=== PATIENT | female | born 1985 | race Two or more races ===

== ENCOUNTER 2025-04-30 22:57 | Emergency (ER) | payer MEDICARE, MEDICAID, SELFPAY ==
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
[2025-04-30 23:05] VITALS: BP 158/110; BP 172/99; PULSE 109; PULSE 120; RESP 18; TEMP 36.9; O2SAT 100; BMI 24.6
[2025-04-30 23:11] VITALS: BP 172/99; PULSE 109; RESP 18; TEMP 36.9; O2SAT 100
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
[2025-04-30 23:16] LABS: MANUAL DIFF FLAG NO
[2025-04-30 23:17] LABS: Hematocrit 22.8 % (37.0-47.0); Hemoglobin 7.5 g/dl (12.0-16.0); Imm Gran Abs Auto 0.03 X10*3/uL (0.00-0.03); Imm Gran Pct Auto 0.4 % (0.0-0.4); Lymphocytes Absolute Auto 1.3 X10*3/uL (1.2-4.9); Mean Corpuscular HGB Conc 32.9 g/dl (31.0-35.0); Mean Corpuscular Hemoglobin 25.8 pg (27.0-33.0); Mean Corpuscular Volume 78.4 fL (80.0-98.0); NRBC Abs Auto 0.000 X10*3/uL (0.0-0.012); NRBC Pct Auto 0.0 /100WBC (0.0-0.2); Platelet Count 181 X10*3/uL (160-400); Red Blood Count 2.91 X10*6/uL (4.20-5.50); White Blood Count 6.9 X10*3/uL (4.8-10.8)
[2025-04-30 23:38] LABS: Alanine Aminotransferase 28 U/L (0-31); Albumin Level 3.6 g/dL (3.5-5.0); Alkaline Phosphatase 102 U/L (39-117); Anion Gap 15 (12-20); Aspartate Amino Transferase 37 U/L (5-31); Blood Urea Nitrogen 13 mg/dL (9-16); Calcium 8.4 mg/dL (8.4-10.2); Carbon Dioxide 21 mmol/L (22-29); Chloride 108 mmol/L (96-108); Creatinine Clr Calc Pharmacy 108.3; Estimated Glomerular Filt Rate > 60; Potassium 3.8 mmol/L (3.3-5.1); Sodium 140 mmol/L (135-145); Total Protein 7.0 g/dL (6.5-8.0)
--- OUTSIDE RECORDS SUMMARY | 2025-05-01 00:20 | XMS_ITS | Encounter Summary ---
Author Organization [facility] Address [address] [place] [id number] Care Team Providers Care Thermostat Repairer Name Role Phone Huey Machuca MD Primary Care Provider [phone] Apolinar Hood MD Unavailable [phone] Boni Rosenberg PA-C Unavailable [phone] Reason for Visit * Reason Onset Date Comments Medical Complaint 04/28/2025 Encounter Details Date Type Department Care Team (Late st Contact Info) Description 04/28/2025 Telephone [facility] Heart & Vascular [facility] [address] [place] [address] [phone] Apolinar Hood MD [address] [place] [phone] Medical Complaint Social History Tobacco Use Types Packs/Day Years Used Date Smoking Tobacco: Never Smokeless Tobacco: Never Alcohol Use Standard Drinks/Week Comments Not Currently 0 (1 standard drink = 0.6 oz pur e alcohol) [facility] Utilities Answer Date Recorded In the past 12 months has th e electric, gas, oil, or water company threatened to shut off services in your home? No 08/27/2024 AUDIT-C Answer Date Recorded Q1: How often do you have a drink containing alc ohol? Monthly or less 11/05/2024 Q2: How many drinks containi ng alcohol do you have on a typical day when you are drinking? 1 or 2 11/05/2024 Q3: How often do you have si x or more drinks on one occasion? Less than monthly 11/05/2024 Hunger Vital Sign Answer Date Recorded Within the past 12 months, y ou worried that your food would run out before you got the money to buy more. Never true 08/27/20 24 Within the past 12 months, t he food you bought just didn't last and you didn't have money to get more. Never true 08/27/2024 PRAPARE - Transportation Answer Date Re corded In the past 12 months, has l ack of transportation kept you from medical appointments or from getting medications? No 08/09 In the past 12 months, has l ack of transportation kept you from meetings, work, or from getting things needed for daily living? No 08/27/2024 Housing Stability Vital Sign Answer Solitario e Recorded In the last 12 months, was t here a time when you were not able to pay the mortgage or rent on time? Yes 08/27/2024 In the past 12 months, how m any times have you moved where you were living? 1 08/27/2024 At any time in the past [address] [facility], were you homeless or living in a jail (including now)? No 08/27/2024 Comments No Sex and Gender Information Value Date Recorded Sex Assigned at Female 01/04/2023 1:04 AM EDT Legal Sex Female 3:31 PM EDT Gender Identity Female 01/04/2023 1:04 AM EDT Sexual Orientation Heterosexual (straight) 01/04 1:04 AM EDT documented as of this encounter Miscellaneous Notes * Telephone Encounter - Tray Merino [place] - 04/28/2025 8:55 AM EDT Patient called stating that she went to her local hospital in [place] and that not much was done for her. She feels as though they have been beating around the velazco in regards to her care and not tryingto help her. She also doesn't think the Carvedilol 12.5 mg BID is working as her BP's are still high. Patient reports BP readings of high 150s systolic and low 90's diastolic. Patient is requesting advise from MD office. Informed patient that there isn't much that we can advise over phone and that she should be evaluated for her symptoms and high BP. MD is not available this week and patient had canceled follow up apt w/ MD for next Saturday (05/04). Strongly advised/encouraged patient to come to ED for evaluation. Patient states that she is unable to come to as I have to bring my son tohis dentist appointment and I have to work . At this time encouraged patient to continue following up w/ local ED. Reminded patient of appointments that have been set for 05/06. Reiterated the importance of her keeping and making appointments. Patient vocalized understanding. Patient support and education provided. Status and goals discussed. All questions were answered w/ confirmed understanding. Encouraged patient to have a low threshold to call w/ questions. Tray Merino MA documented in this encounter Plan of Treatment Upcoming Encounters Date Type Department Care Team (Late st Contact Info) Description 05/06/2025 11:00 AM EDT Appointment [facility] Heart [facility] [address] [place] [phone] Amalia Russo MD [address] [address] 05/06/2025 12:00 PM EDT Office Visit [facility] [address] [facility] [address] [place] [phone] Amalia Russo MD [address] [address] 05/06/2025 1:30 PM EDT Procedure visit [facility] [address] [place] [phone] 05/06/2025 2:20 PM EDT Consult [facility] [address] [place] [address] [phone] documented as of this encounter Visit Diagnoses Not on filedocumented in this encounter Care Teams Thermostat Repairer Relationship Specialty Start Date End Date Huey Machuca MD [address] [place] [phone] PCP - General Internal Medicine 06/30/24 Apolinar Hood MD [address] [place] [phone] Horse Riding Coach Or Instructor Cardiovascular Disease 06/30/22 Boni Rosenberg PA-C [address] [place] [phone] Physician Planning Official Cardiovascular Disease 06/30/24 documented as of this encounter
--- OUTSIDE RECORDS SUMMARY | 2025-05-01 00:20 | XMS_ITS ---
Author Name [facility] Organization Unknown Results Test Name/Text Value Interpretation Date Range Source Lipase SerPl-cCnc 36.0 U/L Normal 11/23/2024 13 - 60 H HCCT Creat SerPl-mCnc 0.6 mg/dL Normal 11/23/2024 0.4 - 1.1 HH CCT CO2 SerPl-sCnc 27.0 mmol/L Normal 11/23/2024 22 - 33 HH CCT Chloride SerPl-sCnc 96.0 mmol/L Below low normal 11/23/2024 98 - 107 HHCCT GFR/BSA.pred SerPlBld KZR-IMO-JuUQpb >90.0 Normal 11/23/2024 59 - HHCCT Bilirub SerPl-mCnc 0.5 mg/dL Normal 11/23/2024 0.2 - 1 HHCCT Glucose SerPl-mCnc 293.0 mg/dL Above high normal 11/23/2024 65 - 99 HHCCT Albumin SerPl-mCnc 4.2 g/dL Normal 11/23/2024 3.5 - 5 HHCCT Calcium SerPl-mCnc 9.4 mg/dL Normal 11/23/2024 8.7 - 10.5 HHCCT ALP SerPl-cCnc 129.0 U/L Above high normal 11/23/2024 32 - 1 22 HHCCT Globulin Ser Calc-mCnc 4.5 g/dL Above high normal 11/23/2024 1.5 - 3.9 HHCCT BUN SerPl-mCnc 11.0 mg/dL Normal 11/23/2024 8 - [address] ALT SerPl-cCnc 19.0 U/L Normal 11/23/2024 10 - 50 HHCC T AST SerPl-cCnc 27.0 U/L Normal 11/23/2024 10 - 50 HHCC T BUN/Creat SerPl 18.0 Ratio Normal 11/23/2024 10 - 25 HH CCT Anion Gap Bld-sCnc 13.0 Normal 11/23/2024 7 - 17 HHCCT Prot SerPl-mCnc 8.7 g/dL Above high normal 11/23/2024 6.3 - 8.3 HHCCT Sodium SerPl-sCnc 136.0 mmol/L Normal 11/23/2024 136 - 14 5 HHCCT Potassium SerPl-sCnc 3.5 mmol/L Normal 11/23/2024 3.4 - 5 .3 HHCCT Albumin/Glob SerPl 0.9 Ratio Below low normal 11/23/2024 1 - 3 HHCCT pro BNP, N-terminal 1298.0 pg/mL Above high normal 5 - 125 HHCCT Delta NO PREVIOUS RESULT Normal 11/23/2024 - 3 HHCCT Troponin T SerPl-mCnc <6.0 ng/L Normal 11/23/2024 - 15 HHCCT MCHC RBC Auto-mCnc 33.9 g/dL Normal 11/23/2024 30 - 36 HHCCT Hgb Bld-mCnc 13.7 g/dL Normal 11/23/2024 11.7 - 15.7 HHCC T Hct VFr Bld Auto 40.4 % Normal 11/23/2024 35 - 47 HH CCT Basophils num Bld Auto 0.02 Thou/uL Normal 11/23/2024 0 - 0.2 HHCCT Lymphocytes num Bld Auto 1.21 Thou/uL Below low normal 11/23/2024 1.5 - 4.5 HHCCT MCV RBC Auto 82.0 fL Normal 11/23/2024 80 - 100 HHCCT Monocytes/leuk NFr Bld Auto 5.3 % Normal 11/23/2024 HHCCT PMV Bld Auto 10.3 fL Normal 11/23/2024 7.5 - 12.5 HHCCT Lymphocytes/leuk NFr Bld Auto 12.3 % Normal 11/23/2024 HHCCT Basophils/leuk NFr Bld Auto 0.2 % Normal 11/23/2024 HHCCT Platelet num Bld Auto 253.0 Thou/uL Normal 11/23/2024 150 - 450 HHCCT MCH RBC Qn Auto 27.7 pg Normal 11/23/2024 26 - [address] Imm Granulocytes num Bld Auto 0.03 Thou/uL Normal 11/23/2024 0 - 0.1 HHCCT Eosinophil num Bld Auto 0.06 Thou/uL Normal 11/23/2024 0 - 0.7 HHCCT Neutrophils num Bld Auto 7.96 Thou/uL Above high normal 11/23/2024 2 - 7.5 HHCCT RDW RBC Auto-Rto 12.5 % Normal 11/23/2024 11.5 - 14.5 HHCCT Monocytes num Bld Auto 0.52 Thou/uL Normal 11/23/2024 0.2 - 1.5 HHCCT Eosinophil/leuk NFr Bld Auto 0.6 % Normal 11/23/2024 HHCCT WBC num Bld Auto 9.8 Thou/uL Normal 11/23/2024 4 - 11 HHCCT Imm Granulocytes/leuk NFr Bld Auto 0.3 % Normal 11/23/2024 HHCCT Neutrophils/leuk NFr Bld Auto 81.3 % Normal 11/23/2024 HHCCT RBC num Bld Auto 4.95 Mil/uL Normal 11/23/2024 4 - 5.4 HHCCT BNP SerPl-mCnc 22.0 pcg/mL Normal 11/11/2024 0 - 100 CT _[facility] Troponin I SerPl HS-mCnc 7.0 ng/L Normal 11/11/2024 0 - 14 [facility] Magnesium SerPl-mCnc 2.7 mg/dL Normal 11/11/2024 1.7 - 2. 8 [facility] AST SerPl-cCnc 40.0 unit/L Normal 11/11/2024 5 - 40 CT [facility] Albumin SerPl-mCnc 4.5 g/dL Normal 11/11/2024 3.5 - 5 [facility] Creat SerPl-mCnc 0.8 mg/dL Normal 11/11/2024 0.5 - 1 CT _[facility] Sodium SerPl-sCnc 129.0 mmol/L Below low normal 11/11/2024 1 35 - 145 [facility] ALP SerPl-cCnc 108.0 unit/L Above high normal 11/11/2024 34 - 104 [facility] ALT SerPl-cCnc 12.0 unit/L Normal 11/11/2024 7 - 52 CT [facility] Calcium SerPl-mCnc 10.1 mg/dL Normal 11/11/2024 8.4 - 10. 2 [facility] Bilirub SerPl-mCnc 0.5 mg/dL Normal 11/11/2024 0.3 - 1 [facility] Chloride SerPl-sCnc 87.0 mmol/L Below low normal 11/11/2024 98 - 107 [facility] BUN/Creat SerPl 28.8 Above high normal 11/11/2024 12 - 20 [facility] CO2 SerPl-sCnc 29.0 mmol/L Normal 11/11/2024 24 - 32 CT [facility] BUN SerPl-mCnc 23.0 mg/dL Above high normal 11/11/2024 7 - 1 7 [facility] Anion Gap SerPl-sCnc 13.0 Normal 11/11/2024 5 - 14 [facility] Glucose SerPl-mCnc 397.0 mg/dL Above high normal 11/11/2024 70 - 199 [facility] Potassium SerPl-sCnc 4.7 mmol/L Normal 11/11/2024 3.5 - 5 .1 [facility] eGFRcr SerPlBld CKD-EPI 2020 98.0 mL/min/1.73m2 Normal 11/11/2024 - [facility] Prot SerPl-mCnc 9.0 g/dL Above high normal 11/11/2024 6.4 - 8.5 [facility] Platelet # Bld Auto 309.0 K/mcL Normal 11/11/2024 150 - 4 50 [facility] Lymphocytes/leuk NFr Bld Auto 24.4 % Normal 11/11/2024 20 - 48 [facility] Monocytes # Bld Auto 0.9 K/mcL Above high normal 11/11/2024 0 - 0.8 [facility] Eosinophil # Bld Auto 0.1 K/mcL Normal 11/11/2024 0 - 0.5 [facility] Basophils # Bld Auto 0.1 K/mcL Normal 11/11/2024 0 - 0.2 [facility] RDW RBC Auto-Rto 12.6 % Normal 11/11/2024 12.1 - 16.2 [facility] Monocytes/leuk NFr Bld Auto 12.1 % Above high normal 11/11/2024 2 - 12 [facility] Hct VFr Bld Auto 41.8 % Normal 11/11/2024 37 - 47 CT _[facility] RBC # Bld Auto 5.01 M/mcL Normal 11/11/2024 4.2 - 5.4 CT_ [facility] PMV Bld Auto 8.6 FL Normal 11/11/2024 7.4 - 11.4 [facility] Hgb Bld-mCnc 14.3 g/dL Normal 11/11/2024 12.5 - 16 [facility] WBC # Bld Auto 7.2 K/mcL Normal 11/11/2024 4 - 10.5 CT_[facility] MCHC RBC Auto-mCnc 34.1 g/dL Normal 11/11/2024 32 - 36 [facility] Neutrophils/leuk NFr Bld Auto 61.2 % Normal 11/11/2024 44 - 74 [facility] Eosinophil/leuk NFr Bld Auto 1.6 % Normal 11/11/2024 0 - 6 [facility] Neutrophils # Bld Auto 4.4 K/mcL Normal 11/11/2024 1.8 - 7.8 [facility] Basophils/leuk NFr Bld Auto 0.7 % Normal 11/11/2024 0 - 2 [facility] MCV RBC Auto 83.4 FL Normal 11/11/2024 78 - 100 [facility] MCH RBC Qn Auto 28.5 pcg Normal 11/11/2024 25 - 33 CT_ [facility] Lymphocytes # Bld Auto 1.7 K/mcL Normal 11/11/2024 1 - 3.2 [facility] Lactate SerPl-sCnc 1.5 mmol/L Normal 11/06/2024 0.5 - 1.9 HHCCT Lactate SerPl-sCnc 2.2 mmol/L Above high normal 11/06/2024 0 .5 - 1.9 HHCCT Troponin T SerPl-mCnc 16.0 ng/L Above high normal 11/06/2024 - 15 HHCCT Delta 1.0 Normal 11/06/2024 - 3 HHCCT pro BNP, N-terminal 2350.0 pg/mL Above high normal 5 - 125 HHCCT Troponin T SerPl-mCnc 15.0 ng/L Above high normal 11/06/2024 - 15 HHCCT Delta NO PREVIOUS RESULT Normal 11/06/2024 - 3 HHCCT BUN/Creat SerPl 20.0 Ratio Normal 11/06/2024 10 - 25 HH CCT Albumin/Glob SerPl 1.0 Ratio Normal 11/06/2024 1 - 3 HHCCT Sodium SerPl-sCnc 137.0 mmol/L Normal 11/06/2024 136 - 14 5 HHCCT Globulin Ser Calc-mCnc 4.6 g/dL Above high normal 11/06/2024 1.5 - 3.9 HHCCT Glucose SerPl-mCnc 344.0 mg/dL Above high normal 11/06/2024 65 - 99 HHCCT Calcium SerPl-mCnc 10.0 mg/dL Normal 11/06/2024 8.7 - 10. 5 HHCCT Bilirub SerPl-mCnc 0.5 mg/dL Normal 11/06/2024 0.2 - 1 HHCCT CO2 SerPl-sCnc 28.0 mmol/L Normal 11/06/2024 22 - 33 HH CCT ALP SerPl-cCnc 150.0 U/L Above high normal 11/06/2024 32 - 1 22 HHCCT BUN SerPl-mCnc 14.0 mg/dL Normal 11/06/2024 8 - [address] Potassium SerPl-sCnc 3.2 mmol/L Below low normal 11/06/2024 3.4 - 5.3 HHCCT AST SerPl-cCnc 18.0 U/L Normal 11/06/2024 10 - 50 HHCC T ALT SerPl-cCnc 15.0 U/L Normal 11/06/2024 10 - 50 HHCC T Creat SerPl-mCnc 0.7 mg/dL Normal 11/06/2024 0.4 - 1.1 HH CCT GFR/BSA.pred SerPlBld OYL-DIX-KkMIqe >90.0 Normal 11/06/2024 59 - HHCCT Prot SerPl-mCnc 9.0 g/dL Above high normal 11/06/2024 6.3 - 8.3 HHCCT Chloride SerPl-sCnc 95.0 mmol/L Below low normal 11/06/2024 98 - 107 HHCCT Albumin SerPl-mCnc 4.4 g/dL Normal 11/06/2024 3.5 - 5 HHCCT Anion Gap Bld-sCnc 14.0 Normal 11/06/2024 7 - 17 HHCCT Magnesium SerPl-mCnc 2.2 mg/dL Normal 11/06/2024 1.6 - 2. 7 HHCCT Platelet num Bld Auto 300.0 Thou/uL Normal 11/06/2024 150 - 450 HHCCT Imm Granulocytes/leuk NFr Bld Auto 0.4 % Normal 11/06/2024 HHCCT PMV Bld Auto 10.2 fL Normal 11/06/2024 7.5 - 12.5 HHCCT Neutrophils num Bld Auto 7.2 Thou/uL Normal 11/06/2024 2 - 7.5 HHCCT Neutrophils/leuk NFr Bld Auto 75.4 % Normal 11/06/2024 HHCCT RDW RBC Auto-Rto 12.4 % Normal 11/06/2024 11.5 - 14.5 HHCCT Eosinophil num Bld Auto 0.04 Thou/uL Normal 11/06/2024 0 - 0.7 HHCCT RBC num Bld Auto 4.91 Mil/uL Normal 11/06/2024 4 - 5.4 HHCCT Basophils/leuk NFr Bld Auto 0.3 % Normal 11/06/2024 HHCCT Basophils num Bld Auto 0.03 Thou/uL Normal 11/06/2024 0 - 0.2 HHCCT Hgb Bld-mCnc 13.6 g/dL Normal 11/06/2024 11.7 - 15.7 HHCC T Lymphocytes/leuk NFr Bld Auto 14.5 % Normal 11/06/2024 HHCCT Lymphocytes num Bld Auto 1.39 Thou/uL Below low normal 11/06/2024 1.5 - 4.5 HHCCT MCV RBC Auto 81.0 fL Normal 11/06/2024 80 - 100 HHCCT Imm Granulocytes num Bld Auto 0.04 Thou/uL Normal 11/06/2024 0 - 0.1 HHCCT Eosinophil/leuk NFr Bld Auto 0.4 % Normal 11/06/2024 HHCCT Monocytes num Bld Auto 0.86 Thou/uL Normal 11/06/2024 0.2 - 1.5 HHCCT MCH RBC Qn Auto 27.7 pg Normal 11/06/2024 26 - [address] MCHC RBC Auto-mCnc 34.3 g/dL Normal 11/06/2024 30 - 36 HHCCT WBC num Bld Auto 9.6 Thou/uL Normal 11/06/2024 4 - 11 HHCCT Hct VFr Bld Auto 39.7 % Normal 11/06/2024 35 - 47 HH CCT Monocytes/leuk NFr Bld Auto 9.0 % Normal 11/06/2024 HHCCT POC Glucose 305.0 mg/dL Above high normal 11/05/2024 65 - 99 HHCCT Potassium SerPl-sCnc 4.2 mmol/L Normal 11/05/2024 3.4 - 5 .3 HHCCT Glucose SerPl-mCnc 270.0 mg/dL Above high normal 11/05/2024 65 - 99 HHCCT Sodium SerPl-sCnc 135.0 mmol/L Below low normal 11/05/2024 1 36 - 145 HHCCT Anion Gap Bld-sCnc 11.0 Normal 11/05/2024 7 - 17 HHCCT Creat SerPl-mCnc 0.5 mg/dL Normal 11/05/2024 0.4 - 1.1 HH CCT BUN/Creat SerPl 18.0 Ratio Normal 11/05/2024 10 - 25 HH CCT BUN SerPl-mCnc 9.0 mg/dL Normal 11/05/2024 8 - 21 HHCC T Chloride SerPl-sCnc 101.0 mmol/L Normal 11/05/2024 98 - 1 07 HHCCT Calcium SerPl-mCnc 8.5 mg/dL Below low normal 11/05/2024 8.7 - 10.5 HHCCT GFR/BSA.pred SerPlBld JEL-TPG-VrFRqz >90.0 Normal 11/05/2024 59 - HHCCT CO2 SerPl-sCnc 23.0 mmol/L Normal 11/05/2024 22 - 33 HH CCT Platelet num Bld Auto 236.0 Thou/uL Normal 11/05/2024 150 - 450 HHCCT RBC num Bld Auto 4.3 Mil/uL Normal 11/05/2024 4 - 5.4 H HCCT Hct VFr Bld Auto 36.0 % Normal 11/05/2024 35 - 47 HH CCT MCH RBC Qn Auto 28.4 pg Normal 11/05/2024 26 - [address] MCV RBC Auto 84.0 fL Normal 11/05/2024 80 - 100 HHCCT Hgb Bld-mCnc 12.2 g/dL Normal 11/05/2024 11.7 - 15.7 HHCC T PMV Bld Auto 9.7 fL Normal 11/05/2024 7.5 - 12.5 HHCCT MCHC RBC Auto-mCnc 33.9 g/dL Normal 11/05/2024 30 - 36 HHCCT RDW RBC Auto-Rto 12.6 % Normal 11/05/2024 11.5 - 14.5 HHCCT WBC num Bld Auto 6.7 Thou/uL Normal 11/05/2024 4 - 11 HHCCT POC Glucose 272.0 mg/dL Above high normal 11/05/2024 65 - 99 HHCCT Delta NO CHANGE Normal 08/29/2024 - CCT Troponin T SerPl-mCnc <6.0 ng/L Normal 08/29/2024 - CCT POC Glucose 201.0 mg/dL Above high normal 08/29/2024 65 - 99 HHCCT Delta NO PREVIOUS RESULT Normal 08/29/2024 - CCT Troponin T SerPl-mCnc <6.0 ng/L Normal 08/29/2024 - CCT POC Glucose 164.0 mg/dL Above high normal 08/29/2024 65 - 99 HHCCT Phosphate SerPl-mCnc 4.5 mg/dL Normal 08/29/2024 2.7 - 4. 5 HHCCT Glucose SerPl-mCnc 177.0 mg/dL Above high normal 08/29/2024 65 - 99 CCT Creat SerPl-mCnc 0.6 mg/dL Normal 08/29/2024 0.4 - 1.1 HH CCT Sodium SerPl-sCnc 135.0 mmol/L Below low normal 08/29/2024 1 36 - 145 HHCCT Potassium SerPl-sCnc 3.9 mmol/L Normal 08/29/2024 3.4 - 5 .3 HHCCT Anion Gap Bld-sCnc 9.0 Normal 08/29/2024 7 - 17 HHCCT GFR/BSA.pred SerPlBld VWN-QOP-HxBDpk >90.0 Normal 08/29/2024 59 - HHCCT Calcium SerPl-mCnc 8.7 mg/dL Normal 08/29/2024 8.7 - 10.5 HHCCT CO2 SerPl-sCnc 23.0 mmol/L Normal 08/29/2024 22 - 33 HH CCT Chloride SerPl-sCnc 103.0 mmol/L Normal 08/29/2024 98 - 1 07 HHCCT BUN SerPl-mCnc 16.0 mg/dL Normal 08/29/2024 8 - [address] BUN/Creat SerPl 27.0 Ratio Above high normal 08/29/2024 10 - 25 HHCCT Magnesium SerPl-mCnc 1.7 mg/dL Normal 08/29/2024 1.6 - 2. 7 HHCCT POC Glucose 230.0 mg/dL Above high normal 08/29/2024 65 - 99 HHCCT POC Glucose 235.0 mg/dL Above high normal 08/29/2024 65 - 99 HHCCT POC Glucose 405.0 mg/dL Above high normal 08/28/2024 65 - 99 HHCCT pro BNP, N-terminal 996.0 pg/mL Above high normal 08/28/2024 - 125 HHCCT D dimer FEU PPP-mCnc 217.0 ng/mL DDU Normal 08/28/2024 - 230 HHCCT POC Glucose 196.0 mg/dL Above high normal 08/28/2024 65 - 99 HHCCT POC Glucose 210.0 mg/dL Above high normal 08/28/2024 65 - 99 HHCCT POC Glucose 317.0 mg/dL Above high normal 08/28/2024 65 - 99 HHCCT Magnesium SerPl-mCnc 1.8 mg/dL Normal 08/28/2024 1.6 - 2. 7 HHCCT Phosphate SerPl-mCnc 3.5 mg/dL Normal 08/28/2024 2.7 - 4. 5 HHCCT Chloride SerPl-sCnc 103.0 mmol/L Normal 08/28/2024 98 - 1 07 HHCCT Potassium SerPl-sCnc 5.1 mmol/L Normal 08/28/2024 3.4 - 5 .3 HHCCT BUN SerPl-mCnc 13.0 mg/dL Normal 08/28/2024 8 - [address] Anion Gap Bld-sCnc 10.0 Normal 08/28/2024 7 - 17 HHCCT Calcium SerPl-mCnc 8.8 mg/dL Normal 08/28/2024 8.7 - 10.5 HHCCT Glucose SerPl-mCnc 295.0 mg/dL Above high normal 08/28/2024 65 - 99 HHCCT Creat SerPl-mCnc 0.4 mg/dL Normal 08/28/2024 0.4 - 1.1 HH CCT GFR/BSA.pred SerPlBld RYW-NDA-LjONwt >90.0 Normal 08/28/2024 59 - HHCCT BUN/Creat SerPl 33.0 Ratio Above high normal 08/28/2024 10 - 25 HHCCT Sodium SerPl-sCnc 135.0 mmol/L Below low normal 08/28/2024 1 36 - 145 HHCCT CO2 SerPl-sCnc 22.0 mmol/L Normal 08/28/2024 22 - 33 HH CCT RDW RBC Auto-Rto 15.4 % Above high normal 08/28/2024 11.5 - 14.5 HHCCT RBC num Bld Auto 4.06 Mil/uL Normal 08/28/2024 4 - 5.4 HHCCT MCV RBC Auto 84.0 fL Normal 08/28/2024 80 - 100 HHCCT PMV Bld Auto 9.7 fL Normal 08/28/2024 7.5 - 12.5 HHCCT Platelet num Bld Auto 173.0 Thou/uL Normal 08/28/2024 150 - 450 HHCCT MCH RBC Qn Auto 28.1 pg Normal 08/28/2024 26 - [address] WBC num Bld Auto 8.8 Thou/uL Normal 08/28/2024 4 - 11 HHCCT Hct VFr Bld Auto 34.0 % Below low normal 08/28/2024 35 - 47 HHCCT Hgb Bld-mCnc 11.4 g/dL Below low normal 08/28/2024 11.7 - 15 .7 HHCCT MCHC RBC Auto-mCnc 33.5 g/dL Normal 08/28/2024 30 - 36 HHCCT POC Glucose 337.0 mg/dL Above high normal 08/28/2024 65 - 99 HHCCT POC Glucose 284.0 mg/dL Above high normal 08/28/2024 65 - 99 HHCCT POC Glucose 159.0 mg/dL Above high normal 08/28/2024 65 - 99 HHCCT POC Glucose 201.0 mg/dL Above high normal 08/27/2024 65 - 99 HHCCT POC Glucose 254.0 mg/dL Above high normal 08/27/2024 65 - 99 HHCCT POC Glucose 213.0 mg/dL Above high normal 08/27/2024 65 - 99 HHCCT Magnesium SerPl-mCnc 1.6 mg/dL Normal 08/27/2024 1.6 - 2. 7 HHCCT Calcium SerPl-mCnc 8.9 mg/dL Normal 08/27/2024 8.7 - 10.5 HHCCT BUN SerPl-mCnc 14.0 mg/dL Normal 08/27/2024 8 - [address] Creat SerPl-mCnc 0.5 mg/dL Normal 08/27/2024 0.4 - 1.1 HH CCT Potassium SerPl-sCnc 3.4 mmol/L Normal 08/27/2024 3.4 - 5 .3 HHCCT GFR/BSA.pred SerPlBld MTP-YBQ-OcFAgi >90.0 Normal 08/27/2024 59 - HHCCT Anion Gap Bld-sCnc 12.0 Normal 08/27/2024 7 - 17 HHCCT Sodium SerPl-sCnc 137.0 mmol/L Normal 08/27/2024 136 - 14 5 HHCCT CO2 SerPl-sCnc 25.0 mmol/L Normal 08/27/2024 22 - 33 HH CCT Chloride SerPl-sCnc 100.0 mmol/L Normal 08/27/2024 98 - 1 07 HHCCT BUN/Creat SerPl 28.0 Ratio Above high normal 08/27/2024 10 - 25 HHCCT Glucose SerPl-mCnc 191.0 mg/dL Above high normal 08/27/2024 65 - 99 HHCCT RDW RBC Auto-Rto 15.7 % Above high normal 08/27/2024 11.5 - 14.5 HHCCT MCH RBC Qn Auto 27.3 pg Normal 08/27/2024 26 - [address] MCHC RBC Auto-mCnc 33.1 g/dL Normal 08/27/2024 30 - 36 HHCCT RBC num Bld Auto 3.85 Mil/uL Below low normal 08/27/2024 4 - 5.4 HHCCT PMV Bld Auto 10.4 fL Normal 08/27/2024 7.5 - 12.5 HHCCT MCV RBC Auto 82.0 fL Normal 08/27/2024 80 - 100 HHCCT Hgb Bld-mCnc 10.5 g/dL Below low normal 08/27/2024 11.7 - 15 .7 HHCCT Hct VFr Bld Auto 31.7 % Below low normal 08/27/2024 35 - 47 HHCCT Platelet num Bld Auto 185.0 Thou/uL Normal 08/27/2024 150 - 450 HHCCT WBC num Bld Auto 7.7 Thou/uL Normal 08/27/2024 4 - 11 HHCCT POC Glucose 242.0 mg/dL Above high normal 08/27/2024 65 - 99 HHCCT POC Glucose 376.0 mg/dL Above high normal 08/27/2024 65 - 99 HHCCT POC Glucose 354.0 mg/dL Above high normal 08/27/2024 65 - 99 HHCCT POC Glucose 364.0 mg/dL Above high normal 08/26/2024 65 - 99 HHCCT Glucose SerPl-mCnc 359.0 mg/dL Above high normal 08/26/2024 65 - 99 HHCCT POC Glucose 378.0 mg/dL Above high normal 08/26/2024 65 - 99 HHCCT POC Glucose 482.0 mg/dL Above high normal 08/26/2024 65 - 99 HHCCT Glucose SerPl-mCnc 574.0 mg/dL Critically high 08/26/2024 65 - 99 HHCCT POC Glucose >500.0 mg/dL Above high normal 08/26/2024 65 - 9 9 HHCCT B-OH-Butyr SerPl-sCnc <0.05 mmol/L Normal 08/26/2024 - 0.28 HHCCT Glucose SerPl-mCnc 719.0 mg/dL Critically high 08/26/2024 65 - 99 HHCCT Anion Gap Bld-sCnc 14.0 Normal 08/26/2024 7 - 17 HHCCT Potassium SerPl-sCnc 3.9 mmol/L Normal 08/26/2024 3.4 - 5 .3 HHCCT Chloride SerPl-sCnc 89.0 mmol/L Below low normal 08/26/2024 98 - 107 HHCCT CO2 SerPl-sCnc 26.0 mmol/L Normal 08/26/2024 22 - 33 HH CCT Sodium SerPl-sCnc 129.0 mmol/L Below low normal 08/26/2024 1 36 - 145 HHCCT Creat SerPl-mCnc 0.6 mg/dL Normal 08/26/2024 0.4 - 1.1 HH CCT GFR/BSA.pred SerPlBld HKM-UHP-UwQKyz >90.0 Normal 08/26/2024 59 - HHCCT BUN SerPl-mCnc 13.0 mg/dL Normal 08/26/2024 8 - [address] Hgb Bld-mCnc 11.9 g/dL Normal 08/26/2024 11.7 - 15.7 HHCC T Hct VFr Bld Auto 35.8 % Normal 08/26/2024 35 - 47 HH CCT PMV Bld Auto 9.9 fL Normal 08/26/2024 7.5 - 12.5 HHCCT WBC num Bld Auto 9.8 Thou/uL Normal 08/26/2024 4 - 11 HHCCT MCH RBC Qn Auto 27.2 pg Normal 08/26/2024 26 - [address] MCHC RBC Auto-mCnc 33.2 g/dL Normal 08/26/2024 30 - 36 HHCCT MCV RBC Auto 82.0 fL Normal 08/26/2024 80 - 100 HHCCT Platelet num Bld Auto 215.0 Thou/uL Normal 08/26/2024 150 - 450 HHCCT RBC num Bld Auto 4.37 Mil/uL Normal 08/26/2024 4 - 5.4 HHCCT RDW RBC Auto-Rto 14.6 % Above high normal 08/26/2024 11.5 - 14.5 HHCCT POC Glucose >500.0 mg/dL Above high normal 08/26/2024 65 - 9 9 HHCCT POC Glucose 222.0 mg/dL Above high normal 07/07/2024 65 - 99 HHCCT POC Glucose 263.0 mg/dL Above high normal 07/07/2024 65 - 99 HHCCT pro BNP, N-terminal 1082.0 pg/mL Above high normal 4 - 125 HHCCT Magnesium SerPl-mCnc 2.8 mg/dL Above high normal 07/07/2024 1.6 - 2.7 HHCCT Sodium SerPl-sCnc 136.0 mmol/L Normal 07/07/2024 136 - 14 5 HHCCT BUN/Creat SerPl 30.0 Ratio Above high normal 07/07/2024 10 - 25 HHCCT GFR/BSA.pred SerPlBld QRI-LZW-LsWJcj >90.0 Normal 07/07/2024 59 - HHCCT Glucose SerPl-mCnc 262.0 mg/dL Above high normal 07/07/2024 65 - 99 HHCCT Anion Gap Bld-sCnc 11.0 Normal 07/07/2024 7 - 17 HHCCT Creat SerPl-mCnc 0.7 mg/dL Normal 07/07/2024 0.4 - 1.1 HH CCT Calcium SerPl-mCnc 9.6 mg/dL Normal 07/07/2024 8.7 - 10.5 HHCCT Potassium SerPl-sCnc 4.6 mmol/L Normal 07/07/2024 3.4 - 5 .3 HHCCT CO2 SerPl-sCnc 24.0 mmol/L Normal 07/07/2024 22 - 33 HH CCT BUN SerPl-mCnc 21.0 mg/dL Normal 07/07/2024 8 - [address] Chloride SerPl-sCnc 101.0 mmol/L Normal 07/07/2024 98 - 1 07 HHCCT Phosphate SerPl-mCnc 4.3 mg/dL Normal 07/07/2024 2.7 - 4. 5 HHCCT PMV Bld Auto 10.6 fL Normal 07/07/2024 7.5 - 12.5 HHCCT RBC num Bld Auto 5.67 Mil/uL Above high normal 07/07/2024 4 - 5.4 HHCCT MCHC RBC Auto-mCnc 31.8 g/dL Normal 07/07/2024 30 - 36 HHCCT Hgb Bld-mCnc 15.1 g/dL Normal 07/07/2024 11.7 - 15.7 HHCC T RDW RBC Auto-Rto 15.2 % Above high normal 07/07/2024 11.5 - 14.5 HHCCT WBC num Bld Auto 9.3 Thou/uL Normal 07/07/2024 4 - 11 HHCCT Hct VFr Bld Auto 47.5 % Above high normal 07/07/2024 35 - 47 HHCCT MCV RBC Auto 84.0 fL Normal 07/07/2024 80 - 100 HHCCT MCH RBC Qn Auto 26.6 pg Normal 07/07/2024 26 - [address] Platelet num Bld Auto 283.0 Thou/uL Normal 07/07/2024 150 - 450 HHCCT POC Glucose 155.0 mg/dL Above high normal 07/07/2024 65 - 99 HHCCT POC Glucose 132.0 mg/dL Above high normal 07/07/2024 65 - 99 HHCCT POC Glucose 245.0 mg/dL Above high normal 07/06/2024 65 - 99 HHCCT Troponin T SerPl-mCnc 7.0 ng/L Normal 07/06/2024 - 15 HHCCT Delta NO PREVIOUS RESULT Normal 07/06/2024 - 3 HHCCT POC Glucose 169.0 mg/dL Above high normal 07/06/2024 65 - 99 HHCCT RDW RBC Auto-Rto 15.5 % Above high normal 07/06/2024 11.5 - 14.5 HHCCT MCH RBC Qn Auto 27.3 pg Normal 07/06/2024 26 - [address] MCV RBC Auto 86.0 fL Normal 07/06/2024 80 - 100 HHCCT PMV Bld Auto 10.8 fL Normal 07/06/2024 7.5 - 12.5 HHCCT Hgb Bld-mCnc 13.8 g/dL Normal 07/06/2024 11.7 - 15.7 HHCC T MCHC RBC Auto-mCnc 31.9 g/dL Normal 07/06/2024 30 - 36 HHCCT Hct VFr Bld Auto 43.2 % Normal 07/06/2024 35 - 47 HH CCT Platelet num Bld Auto 267.0 Thou/uL Normal 07/06/2024 150 - 450 HHCCT WBC num Bld Auto 7.1 Thou/uL Normal 07/06/2024 4 - 11 HHCCT RBC num Bld Auto 5.05 Mil/uL Normal 07/06/2024 4 - 5.4 HHCCT BUN/Creat SerPl 29.0 Ratio Above high normal 07/06/2024 10 - 25 HHCCT BUN SerPl-mCnc 29.0 mg/dL Above high normal 07/06/2024 8 - 2 1 HHCCT Creat SerPl-mCnc 1.0 mg/dL Normal 07/06/2024 0.4 - 1.1 HH CCT Potassium SerPl-sCnc 4.1 mmol/L Normal 07/06/2024 3.4 - 5 .3 HHCCT Chloride SerPl-sCnc 98.0 mmol/L Normal 07/06/2024 98 - 10 7 HHCCT Sodium SerPl-sCnc 135.0 mmol/L Below low normal 07/06/2024 1 36 - 145 HHCCT Glucose SerPl-mCnc 155.0 mg/dL Above high normal 07/06/2024 65 - 99 HHCCT GFR/BSA.pred SerPlBld [id number] 75.0 Normal 07/06/2024 59 - HHCCT CO2 SerPl-sCnc 26.0 mmol/L Normal 07/06/2024 22 - 33 HH CCT Calcium SerPl-mCnc 8.9 mg/dL Normal 07/06/2024 8.7 - 10.5 HHCCT Anion Gap Bld-sCnc 11.0 Normal 07/06/2024 7 - 17 HHCCT Magnesium SerPl-mCnc 2.6 mg/dL Normal 07/06/2024 1.6 - 2. 7 HHCCT Phosphate SerPl-mCnc 4.9 mg/dL Above high normal 07/06/2024 2.7 - 4.5 HHCCT POC Glucose 178.0 mg/dL Above high normal 07/06/2024 65 - 99 HHCCT POC Glucose 151.0 mg/dL Above high normal 07/05/2024 65 - 99 HHCCT POC Glucose 234.0 mg/dL Above high normal 07/05/2024 65 - 99 HHCCT POC Glucose 148.0 mg/dL Above high normal 07/05/2024 65 - 99 HHCCT Magnesium SerPl-mCnc 2.4 mg/dL Normal 07/05/2024 1.6 - 2. 7 HHCCT Potassium SerPl-sCnc 3.9 mmol/L Normal 07/05/2024 3.4 - 5 .3 HHCCT GFR/BSA.pred SerPlBld [id number] >90.0 Normal 07/05/2024 59 - HHCCT BUN/Creat SerPl 28.0 Ratio Above high normal 07/05/2024 10 - 25 HHCCT Chloride SerPl-sCnc 98.0 mmol/L Normal 07/05/2024 98 - 10 7 HHCCT Calcium SerPl-mCnc 8.7 mg/dL Normal 07/05/2024 8.7 - 10.5 HHCCT Glucose SerPl-mCnc 144.0 mg/dL Above high normal 07/05/2024 65 - 99 HHCCT BUN SerPl-mCnc 22.0 mg/dL Above high normal 07/05/2024 8 - 2 1 HHCCT Anion Gap Bld-sCnc 12.0 Normal 07/05/2024 7 - 17 HHCCT Creat SerPl-mCnc 0.8 mg/dL Normal 07/05/2024 0.4 - 1.1 HH CCT Sodium SerPl-sCnc 135.0 mmol/L Below low normal 07/05/2024 1 36 - 145 HHCCT CO2 SerPl-sCnc 25.0 mmol/L Normal 07/05/2024 22 - 33 HH CCT Phosphate SerPl-mCnc 5.0 mg/dL Above high normal 07/05/2024 2.7 - 4.5 HHCCT PMV Bld Auto 10.8 fL Normal 07/05/2024 7.5 - 12.5 HHCCT Platelet num Bld Auto 294.0 Thou/uL Normal 07/05/2024 150 - 450 HHCCT MCHC RBC Auto-mCnc 31.9 g/dL Normal 07/05/2024 30 - 36 HHCCT MCH RBC Qn Auto 26.6 pg Normal 07/05/2024 26 - [address] MCV RBC Auto 83.0 fL Normal 07/05/2024 80 - 100 HHCCT WBC num Bld Auto 6.8 Thou/uL Normal 07/05/2024 4 - 11 HHCCT RBC num Bld Auto 5.11 Mil/uL Normal 07/05/2024 4 - 5.4 HHCCT RDW RBC Auto-Rto 15.3 % Above high normal 07/05/2024 11.5 - 14.5 HHCCT Hgb Bld-mCnc 13.6 g/dL Normal 07/05/2024 11.7 - 15.7 HHCC T Hct VFr Bld Auto 42.6 % Normal 07/05/2024 35 - 47 HH CCT POC Glucose 171.0 mg/dL Above high normal 07/05/2024 65 - 99 HHCCT POC Glucose 167.0 mg/dL Above high normal 07/05/2024 65 - 99 HHCCT POC Glucose 303.0 mg/dL Above high normal 07/04/2024 65 - 99 HHCCT POC Glucose 155.0 mg/dL Above high normal 07/04/2024 65 - 99 HHCCT POC Glucose 136.0 mg/dL Above high normal 07/04/2024 65 - 99 HHCCT Delta NO PREVIOUS RESULT Normal 07/04/2024 - 3 HHCCT Troponin T SerPl-mCnc 9.0 ng/L Normal 07/04/2024 - 15 HHCCT POC Glucose 174.0 mg/dL Above high normal 07/04/2024 65 - 99 HHCCT Phosphate SerPl-mCnc 5.3 mg/dL Above high normal 07/04/2024 2.7 - 4.5 HHCCT Glucose SerPl-mCnc 215.0 mg/dL Above high normal 07/04/2024 65 - 99 HHCCT BUN SerPl-mCnc 21.0 mg/dL Normal 07/04/2024 8 - [address] Creat SerPl-mCnc 0.8 mg/dL Normal 07/04/2024 0.4 - 1.1 HH CCT Anion Gap Bld-sCnc 10.0 Normal 07/04/2024 7 - 17 HHCCT Chloride SerPl-sCnc 95.0 mmol/L Below low normal 07/04/2024 98 - 107 HHCCT CO2 SerPl-sCnc 28.0 mmol/L Normal 07/04/2024 22 - 33 HH CCT Potassium SerPl-sCnc 4.0 mmol/L Normal 07/04/2024 3.4 - 5 .3 HHCCT BUN/Creat SerPl 26.0 Ratio Above high normal 07/04/2024 10 - 25 HHCCT Sodium SerPl-sCnc 133.0 mmol/L Below low normal 07/04/2024 1 36 - 145 HHCCT Calcium SerPl-mCnc 9.2 mg/dL Normal 07/04/2024 8.7 - 10.5 HHCCT GFR/BSA.pred SerPlBld [id number] >90.0 Normal 07/04/2024 59 - HHCCT Magnesium SerPl-mCnc 2.3 mg/dL Normal 07/04/2024 1.6 - 2. 7 HHCCT Hct VFr Bld Auto 45.2 % Normal 07/04/2024 35 - 47 HH CCT RBC num Bld Auto 5.37 Mil/uL Normal 07/04/2024 4 - 5.4 HHCCT MCV RBC Auto 84.0 fL Normal 07/04/2024 80 - 100 HHCCT MCH RBC Qn Auto 26.6 pg Normal 07/04/2024 26 - [address] PMV Bld Auto 10.3 fL Normal 07/04/2024 7.5 - 12.5 HHCCT MCHC RBC Auto-mCnc 31.6 g/dL Normal 07/04/2024 30 - 36 HHCCT Hgb Bld-mCnc 14.3 g/dL Normal 07/04/2024 11.7 - 15.7 HHCC T Platelet num Bld Auto 316.0 Thou/uL Normal 07/04/2024 150 - 450 HHCCT RDW RBC Auto-Rto 15.3 % Above high normal 07/04/2024 11.5 - 14.5 HHCCT WBC num Bld Auto 7.5 Thou/uL Normal 07/04/2024 4 - 11 HHCCT POC Glucose 208.0 mg/dL Above high normal 07/04/2024 65 - 99 HHCCT POC Glucose 269.0 mg/dL Above high normal 07/04/2024 65 - 99 HHCCT POC Glucose 181.0 mg/dL Above high normal 07/04/2024 65 - 99 HHCCT Chloride SerPl-sCnc 95.0 mmol/L Below low normal 07/03/2024 98 - 107 HHCCT BUN/Creat SerPl 24.0 Ratio Normal 07/03/2024 10 - HH CCT BUN SerPl-mCnc 22.0 mg/dL Above high normal 07/03/2024 8 - 2 1 HHCCT Creat SerPl-mCnc 0.9 mg/dL Normal 07/03/2024 0.4 - 1.1 HH CCT Anion Gap Bld-sCnc 15.0 Normal 07/03/2024 7 - 17 HHCCT CO2 SerPl-sCnc 27.0 mmol/L Normal 07/03/2024 22 - 33 HH CCT GFR/BSA.pred SerPlBld [id number] 85.0 Normal 07/03/2024 59 - HHCCT Glucose SerPl-mCnc 176.0 mg/dL Above high normal 07/03/2024 65 - 99 HHCCT Calcium SerPl-mCnc 9.6 mg/dL Normal 07/03/2024 8.7 - 10.5 HHCCT Potassium SerPl-sCnc 4.4 mmol/L Normal 07/03/2024 3.4 - 5 .3 HHCCT Sodium SerPl-sCnc 137.0 mmol/L Normal 07/03/2024 136 - 14 5 HHCCT POC Glucose 186.0 mg/dL Above high normal 07/03/2024 65 - 99 HHCCT POC Glucose 221.0 mg/dL Above high normal 07/03/2024 65 - 99 HHCCT POC Glucose 201.0 mg/dL Above high normal 07/03/2024 65 - 99 HHCCT pro BNP, N-terminal 999.0 pg/mL Above high normal 07/03/2024 - 125 HHCCT Phosphate SerPl-mCnc 4.9 mg/dL Above high normal 07/03/2024 2.7 - 4.5 HHCCT Magnesium SerPl-mCnc 1.9 mg/dL Normal 07/03/2024 1.6 - 2. 7 HHCCT Creat SerPl-mCnc 0.7 mg/dL Normal 07/03/2024 0.4 - 1.1 HH CCT BUN SerPl-mCnc 14.0 mg/dL Normal 07/03/2024 8 - [address] GFR/BSA.pred SerPlBld KLY-[id number]-[id number] >90.0 Normal 07/03/2024 59 - HHCCT CO2 SerPl-sCnc 27.0 mmol/L Normal 07/03/2024 22 - 33 HH CCT Potassium SerPl-sCnc 3.7 mmol/L Normal 07/03/2024 3.4 - 5 .3 HHCCT Chloride SerPl-sCnc 97.0 mmol/L Below low normal 07/03/2024 98 - 107 HHCCT Glucose SerPl-mCnc 153.0 mg/dL Above high normal 07/03/2024 65 - 99 HHCCT Sodium SerPl-sCnc 137.0 mmol/L Normal 07/03/2024 136 - 14 5 HHCCT BUN/Creat SerPl 20.0 Ratio Normal 07/03/2024 10 - 25 HH CCT Calcium SerPl-mCnc 8.7 mg/dL Normal 07/03/2024 8.7 - 10.5 HHCCT Anion Gap Bld-sCnc 13.0 Normal 07/03/2024 7 - 17 HHCCT MCV RBC Auto 85.0 fL Normal 07/03/2024 80 - 100 HHCCT PMV Bld Auto 10.6 fL Normal 07/03/2024 7.5 - 12.5 HHCCT Hct VFr Bld Auto 44.7 % Normal 07/03/2024 35 - 47 HH CCT MCHC RBC Auto-mCnc 31.1 g/dL Normal 07/03/2024 30 - 36 HHCCT Platelet num Bld Auto 295.0 Thou/uL Normal 07/03/2024 150 - 450 HHCCT Hgb Bld-mCnc 13.9 g/dL Normal 07/03/2024 11.7 - 15.7 HHCC T MCH RBC Qn Auto 26.5 pg Normal 07/03/2024 26 - [address] WBC num Bld Auto 5.7 Thou/uL Normal 07/03/2024 4 - 11 HHCCT RBC num Bld Auto 5.25 Mil/uL Normal 07/03/2024 4 - 5.4 HHCCT RDW RBC Auto-Rto 15.4 % Above high normal 07/03/2024 11.5 - 14.5 HHCCT POC Glucose 189.0 mg/dL Above high normal 07/03/2024 65 - 99 HHCCT Calcium SerPl-mCnc 8.5 mg/dL Below low normal 07/02/2024 8.7 - 10.5 HHCCT CO2 SerPl-sCnc 27.0 mmol/L Normal 07/02/2024 22 - 33 HH CCT Potassium SerPl-sCnc 3.8 mmol/L Normal 07/02/2024 3.4 - 5 .3 HHCCT BUN SerPl-mCnc 11.0 mg/dL Normal 07/02/2024 8 - [address] GFR/BSA.pred SerPlBld QFH-SRL-SrNAoi >90.0 Normal 07/02/2024 59 - HHCCT BUN/Creat SerPl 14.0 Ratio Normal 07/02/2024 10 - 25 HH CCT Anion Gap Bld-sCnc 15.0 Normal 07/02/2024 7 - 17 HHCCT Creat SerPl-mCnc 0.8 mg/dL Normal 07/02/2024 0.4 - 1.1 HH CCT Chloride SerPl-sCnc 98.0 mmol/L Normal 07/02/2024 98 - 10 7 HHCCT Glucose SerPl-mCnc 189.0 mg/dL Above high normal 07/02/2024 65 - 99 HHCCT Sodium SerPl-sCnc 140.0 mmol/L Normal 07/02/2024 136 - 14 5 HHCCT POC Glucose 201.0 mg/dL Above high normal 07/02/2024 65 - 99 HHCCT POC Glucose 183.0 mg/dL Above high normal 07/02/2024 65 - 99 HHCCT CO2 SerPl-sCnc 28.0 mmol/L Normal 07/02/2024 22 - 33 HH CCT Chloride SerPl-sCnc 100.0 mmol/L Normal 07/02/2024 98 - 1 07 HHCCT Calcium SerPl-mCnc 8.0 mg/dL Below low normal 07/02/2024 8.7 - 10.5 HHCCT BUN SerPl-mCnc 9.0 mg/dL Normal 07/02/2024 8 - 21 HHCC T BUN/Creat SerPl 13.0 Ratio Normal 07/02/2024 10 - 25 HH CCT Glucose SerPl-mCnc 171.0 mg/dL Above high normal 07/02/2024 65 - 99 HHCCT Potassium SerPl-sCnc 3.7 mmol/L Normal 07/02/2024 3.4 - 5 .3 HHCCT Anion Gap Bld-sCnc 13.0 Normal 07/02/2024 7 - 17 HHCCT Creat SerPl-mCnc 0.7 mg/dL Normal 07/02/2024 0.4 - 1.1 HH CCT GFR/BSA.pred SerPlBld FIP-MHC-AyHZgm >90.0 Normal 07/02/2024 59 - HHCCT Sodium SerPl-sCnc 141.0 mmol/L Normal 07/02/2024 136 - 14 5 HHCCT Magnesium SerPl-mCnc 1.9 mg/dL Normal 07/02/2024 1.6 - 2. 7 HHCCT Phosphate SerPl-mCnc 3.6 mg/dL Normal 07/02/2024 2.7 - 4. 5 HHCCT PMV Bld Auto 10.5 fL Normal 07/02/2024 7.5 - 12.5 HHCCT WBC num Bld Auto 5.5 Thou/uL Normal 07/02/2024 4 - 11 HHCCT RDW RBC Auto-Rto 15.3 % Above high normal 07/02/2024 11.5 - 14.5 HHCCT MCV RBC Auto 85.0 fL Normal 07/02/2024 80 - 100 HHCCT RBC num Bld Auto 4.58 Mil/uL Normal 07/02/2024 4 - 5.4 HHCCT MCHC RBC Auto-mCnc 31.3 g/dL Normal 07/02/2024 30 - 36 HHCCT Platelet num Bld Auto 301.0 Thou/uL Normal 07/02/2024 150 - 450 HHCCT MCH RBC Qn Auto 26.6 pg Normal 07/02/2024 26 - [address] Hgb Bld-mCnc 12.2 g/dL Normal 07/02/2024 11.7 - 15.7 HHCC T Hct VFr Bld Auto 39.0 % Normal 07/02/2024 35 - 47 HH CCT POC Glucose 180.0 mg/dL Above high normal 07/02/2024 65 - 99 HHCCT POC Glucose 244.0 mg/dL Above high normal 07/02/2024 65 - 99 HHCCT Anion Gap Bld-sCnc 14.0 Normal 07/02/2024 7 - 17 HHCCT Sodium SerPl-sCnc 139.0 mmol/L Normal 07/02/2024 136 - 14 5 HHCCT Glucose SerPl-mCnc 241.0 mg/dL Above high normal 07/02/2024 65 - 99 HHCCT Calcium SerPl-mCnc 8.1 mg/dL Below low normal 07/02/2024 8.7 - 10.5 HHCCT GFR/BSA.pred SerPlBld FEZ-OXB-[id number] >90.0 Normal 07/02/2024 59 - HHCCT Creat SerPl-mCnc 0.6 mg/dL Normal 07/02/2024 0.4 - 1.1 HH CCT BUN SerPl-mCnc 7.0 mg/dL Below low normal 07/02/2024 8 - 21 HHCCT Potassium SerPl-sCnc 3.7 mmol/L Normal 07/02/2024 3.4 - 5 .3 HHCCT Chloride SerPl-sCnc 98.0 mmol/L Normal 07/02/2024 98 - 10 7 HHCCT CO2 SerPl-sCnc 27.0 mmol/L Normal 07/02/2024 22 - 33 HH CCT BUN/Creat SerPl 12.0 Ratio Normal 07/02/2024 10 - 25 HH CCT Magnesium SerPl-mCnc 1.9 mg/dL Normal 07/02/2024 1.6 - 2. 7 HHCCT POC Glucose 197.0 mg/dL Above high normal 07/02/2024 65 - 99 HHCCT POC Glucose 176.0 mg/dL Above high normal 07/01/2024 65 - 99 HHCCT Potassium SerPl-sCnc 3.8 mmol/L Normal 07/01/2024 3.4 - 5 .3 HHCCT POC Glucose 198.0 mg/dL Above high normal 07/01/2024 65 - 99 HHCCT pro BNP, N-terminal 2904.0 pg/mL Above high normal 4 - 125 HHCCT TSH SerPl DL<=0.005 mIU/L-aCnc 1.94 mIU/L Normal 07/01/2024 0.27 - 4.2 HHCCT Magnesium SerPl-mCnc 1.5 mg/dL Below low normal 07/01/2024 1 .6 - 2.7 HHCCT Glucose SerPl-mCnc 192.0 mg/dL Above high normal 07/01/2024 65 - 99 HHCCT Prot SerPl-mCnc 6.1 g/dL Below low normal 07/01/2024 6.3 - 8.3 HHCCT Bilirub SerPl-mCnc 1.1 mg/dL Above high normal 07/01/2024 0. 2 - 1 HHCCT ALT SerPl-cCnc 10.0 U/L Normal 07/01/2024 10 - 50 HHCC T Creat SerPl-mCnc 0.6 mg/dL Normal 07/01/2024 0.4 - 1.1 HH CCT Albumin SerPl-mCnc 2.9 g/dL Below low normal 07/01/2024 3.5 - 5 HHCCT ALP SerPl-cCnc 73.0 U/L Normal 07/01/2024 32 - 122 HHCC T Potassium SerPl-sCnc 2.9 mmol/L Below low normal 07/01/2024 3.4 - 5.3 HHCCT Anion Gap Bld-sCnc 12.0 Normal 07/01/2024 7 - 17 HHCCT Globulin Ser Calc-mCnc 3.2 g/dL Normal 07/01/2024 1.5 - 3.9 HHCCT Chloride SerPl-sCnc 97.0 mmol/L Below low normal 07/01/2024 98 - 107 HHCCT BUN SerPl-mCnc 8.0 mg/dL Normal 07/01/2024 8 - 21 HHCC T CO2 SerPl-sCnc 28.0 mmol/L Normal 07/01/2024 22 - 33 HH CCT AST SerPl-cCnc 21.0 U/L Normal 07/01/2024 10 - 50 HHCC T GFR/BSA.pred SerPlBld PPY-ZJI-QyAFlf >90.0 Normal 07/01/2024 59 - HHCCT Sodium SerPl-sCnc 137.0 mmol/L Normal 07/01/2024 136 - 14 5 HHCCT Calcium SerPl-mCnc 7.7 mg/dL Below low normal 07/01/2024 8.7 - 10.5 HHCCT Albumin/Glob SerPl 0.9 Ratio Below low normal 07/01/2024 1 - 3 HHCCT BUN/Creat SerPl 13.0 Ratio Normal 07/01/2024 10 - 25 HH CCT Lactate SerPl-sCnc 1.4 mmol/L Normal 07/01/2024 0.5 - 1.9 HHCCT Hgb A1c MFr Bld 9.2 % Above high normal 07/01/2024 - 5.7 HHCCT Est. average glucose Bld gHb Est-mCnc 217.0 mg/dL Normal 07/01/2024 HHCCT Neutrophils num Bld Auto 3.37 Thou/uL Normal 07/01/2024 2 - 7.5 HHCCT Monocytes/leuk NFr Bld Auto 6.9 % Normal 07/01/2024 HHCCT Eosinophil num Bld Auto 0.11 Thou/uL Normal 07/01/2024 0 - 0.7 HHCCT Neutrophils/leuk NFr Bld Auto 73.0 % Normal 07/01/2024 HHCCT RBC num Bld Auto 4.31 Mil/uL Normal 07/01/2024 4 - 5.4 HHCCT PMV Bld Auto 10.7 fL Normal 07/01/2024 7.5 - 12.5 HHCCT MCHC RBC Auto-mCnc 31.8 g/dL Normal 07/01/2024 30 - 36 HHCCT Monocytes num Bld Auto 0.32 Thou/uL Normal 07/01/2024 0.2 - 1.5 HHCCT Hct VFr Bld Auto 36.5 % Normal 07/01/2024 35 - 47 HH CCT Imm Granulocytes num Bld Auto 0.01 Thou/uL Normal 07/01/2024 0 - 0.1 HHCCT MCH RBC Qn Auto 26.9 pg Normal 07/01/2024 26 - [address] Basophils/leuk NFr Bld Auto 0.4 % Normal 07/01/2024 HHCCT Basophils num Bld Auto 0.02 Thou/uL Normal 07/01/2024 0 - 0.2 HHCCT RDW RBC Auto-Rto 15.1 % Above high normal 07/01/2024 11.5 - 14.5 HHCCT Eosinophil/leuk NFr Bld Auto 2.4 % Normal 07/01/2024 HHCCT Platelet num Bld Auto 234.0 Thou/uL Normal 07/01/2024 150 - 450 HHCCT Lymphocytes num Bld Auto 0.79 Thou/uL Below low normal 07/01/2024 1.5 - 4.5 HHCCT WBC num Bld Auto 4.6 Thou/uL Normal 07/01/2024 4 - 11 HHCCT Lymphocytes/leuk NFr Bld Auto 17.1 % Normal 07/01/2024 HHCCT MCV RBC Auto 85.0 fL Normal 07/01/2024 80 - 100 HHCCT Imm Granulocytes/leuk NFr Bld Auto 0.2 % Normal 07/01/2024 HHCCT Hgb Bld-mCnc 11.6 g/dL Below low normal 07/01/2024 11.7 - 15 .7 HHCCT POC Glucose 265.0 mg/dL Above high normal 07/01/2024 65 - 99 HHCCT Sodium SerPl-sCnc 139.0 mmol/L Normal 07/01/2024 136 - 14 5 HHCCT Anion Gap Bld-sCnc 13.0 Normal 07/01/2024 7 - 17 HHCCT Chloride SerPl-sCnc 98.0 mmol/L Normal 07/01/2024 98 - 10 7 HHCCT BUN SerPl-mCnc 9.0 mg/dL Normal 07/01/2024 8 - 21 HHCC T CO2 SerPl-sCnc 28.0 mmol/L Normal 07/01/2024 22 - 33 HH CCT BUN/Creat SerPl 13.0 Ratio Normal 07/01/2024 10 - 25 HH CCT GFR/BSA.pred SerPlBld AKF-BZA-TyLIcx >90.0 Normal 07/01/2024 59 - HHCCT Potassium SerPl-sCnc 3.3 mmol/L Below low normal 07/01/2024 3.4 - 5.3 HHCCT Glucose SerPl-mCnc 244.0 mg/dL Above high normal 07/01/2024 65 - 99 HHCCT Calcium SerPl-mCnc 8.2 mg/dL Below low normal 07/01/2024 8.7 - 10.5 HHCCT Creat SerPl-mCnc 0.7 mg/dL Normal 07/01/2024 0.4 - 1.1 HH CCT Magnesium SerPl-mCnc 1.5 mg/dL Below low normal 07/01/2024 1 .6 - 2.7 HHCCT POC Glucose 165.0 mg/dL Above high normal 07/01/2024 65 - 99 HHCCT Delta 2.0 Normal 06/30/2024 - 3 HHCCT Troponin T SerPl-mCnc 14.0 ng/L Normal 06/30/2024 - 15 CCT [facility] Ql Negative [facility]/mL Negative Normal [facility] B[facility] Ql Negative Normal 07/01/[facility]24 [facility] BZE Ur Ql Negative Normal 07/01/2024 - CCT fentaNYL+Norfentanyl Ur Ql Scn Negative Normal 07/01/2024 - CCT Barbiturates Ur Ql Scn>200 ng/mL Negative Normal 07/[facility]/2024 [facility] Opi[facility] Ql [facility]n>300 ng/mL Negative Normal 07/01/2024 - CCT Methadone Ur Ql Scn>300 ng/mL Negative Normal 07/01/2024 - CCT Benzodiaz Ur Ql Scn>200 ng/mL Negative Normal 07/[facility]24 [facility] Ethanol [facility]-m[facility] Negative Normal 07/01/2024 - [facility] CT Cannabinoids Ur Ql Scn>50 ng/mL Negative Normal 07/01/2024 - CCT Tricyclics Ur Ql Scn Negative Normal 07/01/2024 - CCT Oxycodone Ur Ql Scn Negative Normal 07[facility]01/2024 [facility] Glucose 129.0 mg/dL Above high normal 06/30/2024 65 - 99 HHCCT Albumin/Glob SerPl 0.9 Ratio Below low normal 06/30/2024 1 - 3 HHCCT Globulin Ser Calc-mCnc 3.7 g/dL Normal 06/30/2024 1.5 - 3.9 HHCCT Calcium SerPl-mCnc 8.5 mg/dL Below low normal 06/30/2024 8.7 - 10.5 HHCCT Sodium SerPl-sCnc 138.0 mmol/L Normal 06/30/2024 136 - 14 5 HHCCT Prot SerPl-mCnc 6.9 g/dL Normal 06/30/2024 6.3 - 8.[address] AST SerPl-cCnc 27.0 U/L Normal 06/30/2024 10 - 50 HHCC T Creat SerPl-mCnc 0.7 mg/dL Normal 06/30/2024 0.4 - 1.1 HH CCT Potassium SerPl-sCnc 3.3 mmol/L Below low normal 06/30/2024 3.4 - 5.3 HHCCT Anion Gap Bld-sCnc 17.0 Normal 06/30/2024 7 - 17 HHCCT ALP SerPl-cCnc 77.0 U/L Normal 06/30/2024 32 - 122 HHCC T Bilirub SerPl-mCnc 1.6 mg/dL Above high normal 06/30/2024 0. 2 - 1 HHCCT GFR/BSA.pred SerPlBld QZP-OFI-BkFOnf >90.0 Normal 06/30/2024 59 - HHCCT BUN/Creat SerPl 13.0 Ratio Normal 06/30/2024 10 - 25 HH CCT Glucose SerPl-mCnc 130.0 mg/dL Above high normal 06/30/2024 65 - 99 HHCCT ALT SerPl-cCnc 10.0 U/L Normal 06/30/2024 10 - 50 HHCC T Chloride SerPl-sCnc 94.0 mmol/L Below low normal 06/30/2024 98 - 107 HHCCT BUN SerPl-mCnc 9.0 mg/dL Normal 06/30/2024 8 - 21 HHCC T CO2 SerPl-sCnc 27.0 mmol/L Normal 06/30/2024 22 - 33 HH CCT Albumin SerPl-mCnc 3.2 g/dL Below low normal 06/30/2024 3.5 - 5 HHCCT Magnesium SerPl-mCnc 1.5 mg/dL Below low normal 06/30/2024 1 .6 - 2.7 HHCCT B-HCG Preg SerPl Ql Negative Normal 06/30/2024 - HHCCT Troponin T SerPl-mCnc 12.0 ng/L Normal 06/30/2024 - HHCCT Delta NO PREVIOUS RESULT Normal 06/30/2024 - 3 HHCCT Lactate SerPl-sCnc 1.7 mmol/L Normal 06/30/2024 0.5 - 1.9 HHCCT MCH RBC Qn Auto 26.3 pg Normal 06/30/2024 26 - [address] PMV Bld Auto 10.6 fL Normal 06/30/2024 7.5 - 12.5 HHCCT WBC num Bld Auto 4.5 Thou/uL Normal 06/30/2024 4 - 11 HHCCT MCHC RBC Auto-mCnc 31.1 g/dL Normal 06/30/2024 30 - 36 HHCCT RBC num Bld Auto 4.49 Mil/uL Normal 06/30/2024 4 - 5.4 HHCCT Hct VFr Bld Auto 38.0 % Normal 06/30/2024 35 - 47 HH CCT MCV RBC Auto 85.0 fL Normal 06/30/2024 80 - 100 HHCCT Hgb Bld-mCnc 11.8 g/dL Normal 06/30/2024 11.7 - 15.7 HHCC T RDW RBC Auto-Rto 14.9 % Above high normal 06/30/2024 11.5 - 14.5 HHCCT Platelet num Bld Auto 268.0 Thou/uL Normal 06/30/2024 150 - 450 HHCCT Troponin T SerPl-mCnc 23.0 ng/L Above high normal 06/16/2024 - 15 HHCCT Delta 2.0 Normal 06/16/2024 - 3 HHCCT WBC num/area UrnS HPF >25.0 per hpf Above high normal 06/16/2024 0 - 4 HHCCT RBC num/area UrnS HPF 10.0 per hpf Above high normal 06/16/2024 0 - 4 HHCCT Bacteria UrnS Ql Micro Present Abnormal 06/16/2024 - CCT Hgb Ur Ql Strip Small Abnormal 06/16/2024 - [facility] CT Clarity Ur Slightly cloudy Normal 06/16/2024 HH CCT Prot Ur Strip-mCnc Moderate (100 mg/dL) Abnormal 06/16/2024 - CCT Sp Gr Ur Strip 1.008 Normal 06/16/2024 1.003 - 1.03 HHCCT Leukocyte esterase Ur Ql Strip Large Abnormal 06/16/2024 - CCT Color Ur Yellow Normal 06/16/2024 HHCCT Ketones Ur Strip-mCnc Negative Normal 06/16/2024 - CCT pH Ur Strip 6.0 Normal 06/16/2024 5 - 8 HHCCT Bilirub Ur Strip-mCnc Negative Normal 06/16/2024 - CCT Glucose Ur Strip-mCnc Negative Normal 06/16/2024 - CCT Nitrite Ur Ql Strip Negative Normal 06/16/2024 - CCT Creat SerPl-mCnc 0.7 mg/dL Normal 06/16/2024 0.4 - 1.1 HH CCT ALP SerPl-cCnc 66.0 U/L Normal 06/16/2024 32 - 122 HHCC T GFR/BSA.pred SerPlBld RSK-WGZ-GoNMfm >90.0 Normal 06/16/2024 59 - HHCCT AST SerPl-cCnc 29.0 U/L Normal 06/16/2024 10 - 50 HHCC T Glucose SerPl-mCnc 231.0 mg/dL Above high normal 06/16/2024 65 - 99 HHCCT CO2 SerPl-sCnc 27.0 mmol/L Normal 06/16/2024 22 - 33 HH CCT Potassium SerPl-sCnc 3.2 mmol/L Below low normal 06/16/2024 3.4 - 5.3 HHCCT BUN/Creat SerPl 10.0 Ratio Normal 06/16/2024 10 - 25 HH CCT Globulin Ser Calc-mCnc 3.3 g/dL Normal 06/16/2024 1.5 - 3.9 HHCCT Bilirub SerPl-mCnc 1.2 mg/dL Above high normal 06/16/2024 0. 2 - 1 HHCCT BUN SerPl-mCnc 7.0 mg/dL Below low normal 06/16/2024 8 - 21 HHCCT Calcium SerPl-mCnc 7.7 mg/dL Below low normal 06/16/2024 8.7 - 10.5 HHCCT Anion Gap Bld-sCnc 12.0 Normal 06/16/2024 7 - 17 HHCCT Sodium SerPl-sCnc 132.0 mmol/L Below low normal 06/16/2024 1 36 - 145 HHCCT Prot SerPl-mCnc 6.1 g/dL Below low normal 06/16/2024 6.3 - 8.3 HHCCT Albumin SerPl-mCnc 2.8 g/dL Below low normal 06/16/2024 3.5 - 5 HHCCT ALT SerPl-cCnc 9.0 U/L Below low normal 06/16/2024 10 - 50 HHCCT Albumin/Glob SerPl 0.8 Ratio Below low normal 06/16/2024 1 - 3 HHCCT Chloride SerPl-sCnc 93.0 mmol/L Below low normal 06/16/2024 98 - 107 HHCCT pro BNP, N-terminal 4515.0 pg/mL Above high normal 4 - 125 HHCCT Magnesium SerPl-mCnc 1.2 mg/dL Below low normal 06/16/2024 1 .6 - 2.7 HHCCT Lipase SerPl-cCnc 22.0 U/L Normal 06/16/2024 13 - 60 H HCCT Troponin T SerPl-mCnc 25.0 ng/L Above high normal 06/16/2024 - 15 HHCCT Delta NO PREVIOUS RESULT Normal 06/16/2024 - 3 HHCCT B-HCG Preg SerPl Ql Negative Normal 06/16/2024 - HHCCT Lactate SerPl-sCnc 2.3 mmol/L Above high normal 06/16/2024 0 .5 - 1.9 HHCCT Imm Granulocytes num Bld Auto 0.03 Thou/uL Normal 06/16/2024 0 - 0.1 HHCCT Monocytes num Bld Auto 0.51 Thou/uL Normal 06/16/2024 0.2 - 1.5 HHCCT Basophils/leuk NFr Bld Auto 0.3 % Normal 06/16/2024 HHCCT Lymphocytes/leuk NFr Bld Auto 10.7 % Normal 06/16/2024 HHCCT MCHC RBC Auto-mCnc 32.0 g/dL Normal 06/16/2024 30 - 36 HHCCT Neutrophils num Bld Auto 5.4 Thou/uL Normal 06/16/2024 2 - 7.5 HHCCT Basophils num Bld Auto 0.02 Thou/uL Normal 06/16/2024 0 - 0.2 HHCCT Eosinophil num Bld Auto 0.04 Thou/uL Normal 06/16/2024 0 - 0.7 HHCCT Monocytes/leuk NFr Bld Auto 7.6 % Normal 06/16/2024 HHCCT Neutrophils/leuk NFr Bld Auto 80.4 % Normal 06/16/2024 HHCCT Platelet num Bld Auto 190.0 Thou/uL Normal 06/16/2024 150 - 450 HHCCT Hct VFr Bld Auto 35.0 % Normal 06/16/2024 35 - 47 HH CCT Eosinophil/leuk NFr Bld Auto 0.6 % Normal 06/16/2024 HHCCT MCH RBC Qn Auto 27.0 pg Normal 06/16/2024 26 - [address] MCV RBC Auto 84.0 fL Normal 06/16/2024 80 - 100 HHCCT RDW RBC Auto-Rto 14.1 % Normal 06/16/2024 11.5 - 14.5 HHCCT PMV Bld Auto 11.1 fL Normal 06/16/2024 7.5 - 12.5 HHCCT Lymphocytes num Bld Auto 0.72 Thou/uL Below low normal 06/16/2024 1.5 - 4.5 HHCCT RBC num Bld Auto 4.15 Mil/uL Normal 06/16/2024 4 - 5.4 HHCCT Hgb Bld-mCnc 11.2 g/dL Below low normal 06/16/2024 11.7 - 15 .7 HHCCT WBC num Bld Auto 6.7 Thou/uL Normal 06/16/2024 4 - 11 HHCCT Imm Granulocytes/leuk NFr Bld Auto 0.4 % Normal 06/16/2024 HHCCT ISTAT BUN 10.0 mg/dL Normal 02/19/2024 8 - 21 HHCCT ISTAT ESTIMATED GFR >90.0 Normal 02/19/2024 59 - HHCCT ISTAT CREATININE 0.6 mg/dL Normal 02/19/2024 0.4 - 1.1 HH CCT ISTAT Hemoglobin 11.9 gm/dL Normal 02/19/2024 11.7 - 15.7 HHCCT ISTAT Glucose 232.0 mg/dL Above high normal 02/19/2024 65 - 99 HHCCT ISTAT Potassium 3.6 mmol/L Normal 02/19/2024 3.4 - 5.3 HH CCT ISTAT Sodium 139.0 mmol/L Normal 02/19/2024 136 - [address] ISTAT TCO2, Venous 28.0 mmol/L Normal 02/19/2024 22 - 33 HHCCT ISTAT Hematocrit 35.0 % Normal 02/19/2024 35 - 47 HH CCT ISTAT Chloride 96.0 mmol/L Below low normal 02/19/2024 98 - 107 HHCCT ISTAT BNP 1076.0 pg/mL Above high normal 02/19/2024 0 - 99 HHCCT History of Medication Use Medication Directions Dispensed Refills Start Date End Date Stat carvedilol (COREG) 12.5 MG tablet Take 1 tablet (12.5 mg total) by mouth 2 (two) times a day with meals. 04/14/2025 active labetalol (NORMODYNE) 100 MG tablet Take 1 tablet (100 mg total) by mouth 2 (two) times a day. 04/13/2025 active diphenhydrAMINE (BENADRYL) 50 MG capsule Take 1 capsule (50 mg total) by mouth daily. Take one tablet the night before your procedure, and one tablet the morning of your procedure. 10/30/2024 5 aborted aspirin enteric coated (ECOTRIN LOW STRENGTH) 81 MG EC tablet Take 1 tablet (81 mg total) by mouth daily. Do not start before August 29, 2024. 08/29/2024 active atorvastatin (LIPITOR) 40 MG tablet Take 1 tablet (40 mg total) by mouth daily. 08/29/2024 active predniSONE (DELTASONE) 20 MG tablet Take 3 tablets (60 mg total) by mouth See Admin Instructions. Take 3 tablet the night prior to procedure at bedtime. Take 3 tablet the morning of the procedure 08/19/2024 suspended carvedilol (COREG) 3.125 MG tablet Take 1 tablet (3.125 mg total) by mouth 2 (two) times a day with meals. 07/07/2024 4 active influenza virus vacc split PF (FLUZONE, FLUARIX, FLULAVAL, AFLURIA) 0.5 ML injection Inject 0.5 mL into the shoulder, thigh, or buttocks once. 07/07/2024 active sucralfate (CARAFATE) 1 g tablet Take 1 tablet (1 g total) by mouth 4 (four) times a day before meals and nightly. One hour before meals and at bedtime 06/16/2024 suspended furosemide (LASIX) 40 MG tablet TAKE 3 TABLETS(120 MG) BY MOUTH DAILY 04/27/2024 active amoxicillin-clavulana te (AUGMENTIN) 875-125 MG per tablet Take 1 tablet by mouth 2 (two) times a day. 03/12/2024 active furosemide (LASIX) 40 MG tablet Take 4 tablets (160 mg total) by mouth daily. 02/19/2024 4 aborted furosemide (LASIX) 40 MG tablet Take 3 tablets (120 mg total) by mouth daily. 10/09/2023 4 active potassium chloride (KLOR-CON M20) CR tablet 40 mEq 40 mEq, Oral, Once, On Sat10/09/23 at 1500, For 1 dose, Swallow tablets whole; do not crush, chew, or suck on tablet. Take with meals and a full glass of water or other liquid to minimize the risk of GI irritation. 10/09/2023 completed furosemide (LASIX) injection 80 mg 80 mg, Intravenous, Once, On Sat10/09/23 at 1500, For 1 dose, Hold for SBP less than 100 mmHg. Notify provider if a dose is held. If ordered IV Push: administer undiluted over 2 minutes. 10/09/2023 active sitaGLIPtin (JANUVIA) 50 MG tablet Take 1 tablet (50 mg total) by mouth daily. 07/02/2023 active sacubitril-valsartan (ENTRESTO) 97-103 mg per tablet Take 1 tablet by mouth 2 (two) times a day. 02/27/2023 active Blood Pressure Kit Use as directed. 02/27/2023 active sacubitril-valsartan (ENTRESTO) 49-51 mg per tablet Take 1 tablet by mouth 2 (two) times a day. 02/20/2023 3 active furosemide (LASIX) injection 120 mg 120 mg, Intravenous, Once, On Sat02/20/23 at 1100, For 1 doseIf ordered IV, for doses up to 80 mg, administer undiluted over 2 minutes. If ordered IV Push: administer undiluted over 2 minutes. 02/20/2023 active spironolactone (ALDACTONE) 25 mg tablet Take 25 mg by mouth in the morning. 02/20/2023 active furosemide (LASIX) 20 MG tablet Take 2 tablets (40 mg total) by mouth daily. 02/15/2023 3 aborted metoPROLOL SUCCINATE (TOPROL-XL) 200 MG 24 hr tablet Take 1 tablet (200 mg total) by mouth daily. 01/04/2023 4 active metFORMIN (GLUCOPHAGE) 1000 MG tablet Take 1 tablet (1,000 mg total) by mouth 2 (two) times a day with meals. 01/04/2023 3 suspended spironolactone (ALDACTONE) 25 MG tablet Take 0.5 tablets (12.5 mg total) by mouth every morning. 01/04/2023 3 active ferrous sulfate 325 (65 FE) MG EC tablet Take 1 tablet (325 mg total) by mouth every other day. Take 2 hours before or 4 hours after acid reducers. 01/04/2023 3 active metoprolol tartrate (LOPRESSOR) 100 mg tablet Take 2 tablets (200 mg total) by mouth in the morning and 2 tablets (200 mg total) before bedtime. 11/04/2022 3 active spironolactone (ALDACTONE) 25 mg tablet Take 0.5 tablets (12.5 mg total) by mouth in the morning. 07/27/2022 4 active furosemide (LASIX) 20 mg tablet Take 1 tablet (20 mg total) by mouth in the morning. 07/27/2022 3 active metFORMIN (GLUCOPHAGE) 1,000 mg tablet Take 1 tablet (1,000 mg total) by mouth in the morning and 1 tablet (1,000 mg total) in the evening. Take with meals. 07/27/2022 3 active doxycycline (VIBRAMYCIN) 100 mg capsule Take 1 capsule (100 mg total) by mouth in the morning and 1 capsule (100 mg total) before bedtime. Do all this for 5 days. 07/27/2022 3 active empagliflozin (JARDIANCE) 10 mg tablet Take 1 tablet (10 mg total) by mouth in the morning. 07/27/2022 active Entresto 24-26 mg per tablet Take 1 tablet by mouth in the morning and 1 tablet before bedtime. START ON SUNDAY 07/29. Do not take lisinopril on 07/28.. 07/27/2022 active sulfamethoxazole-trim ethoprim (BACTRIM DS) 800-160 MG per tablet Take 1 tablet (160 mg of trimethoprim total) by mouth 2 (two) times a day. 07/19/2022 active albuterol 2.5 mg /3 mL (0.083 %) nebulizer solution Take 3 mL (2.5 mg total) by nebulization every 6 (six) hours as needed for wheezing. 12/23/2021 3 active Multiple Vitamin tablet Take 1 tablet by mouth daily. 3 active clopidogrel (PLAVIX) 75 MG tablet Take 1 tablet (75 mg total) by mouth daily. DO NOT START UNTIL AFTER YOUR PROCEDURE ON 11/05/24. After your procedure, take 1 tablet daily for 30 days. Do not start before November 05, 2024. active ipratropium-albuteroL (DUO-NEB) 0.5-2.5 mg/3 mL nebulizer solution Take 3 mL by nebulization Every 6 (six) hours. active metoprolol tartrate (LOPRESSOR) 100 MG tablet Take 2 tablets (200 mg total) by mouth 2 (two) times a day. active Allergies Allergen Reaction Severity Comment Documented Date Source Stat[facility] IODIN[facility] CONTRAST MEDIA ANAPHYLAXIS throat swells CT_[facility] Problems Problem Status Onset Date Problem Type Date of Resolution Source QT prolongation active 2023-01-04 ProblemAct [facility] Hypomagnesemia active 2023-01-[address] Cardiomyopathy active 2024-08-26 ProblemAct [facility] Hypokalemia active 2023-02-15 ProblemAct [facility] CHF (congestive heart failure), NYHA class IV, acute on chronic, combined active 2024-06-30 ProblemAct [facility] Acute on chronic systolic congestive heart failure active 2023-01-04 ProblemAct [facility] Type 2 diabetes mellitus active 2023-01-04 ProblemAct [facility] Chronic systolic heart failure active 2023-10-09 ProblemAct [facility] Pericardial effusion active 2023-01-04 ProblemAct [facility] Heart failure active 2024-10-08 ProblemAct [facility] T Normocytic anemia active 2023-01-04 ProblemAct [facility] Cellulitis active EncounterDiagnosisAct [facility] Dog bite active EncounterDiagnosisAct [facility] Heart failure active 2023-01-03 ProblemAct [facility] Other fatigue active EncounterDiagnosisAct CT_[facility] Coronary artery disease active ProblemAct [facility] Visual impairment active ProblemAct [facility] Type 2 diabetes mellitus active 2022-07-26 ProblemAct [facility] CHF (congestive heart failure) active ProblemAct [facility] Abscess active 2022-07-26 ProblemAct [facility] Asthma active 2022-07-26 ProblemAct [facility] Fatty liver active ProblemAct [facility] Acute on chronic systolic (congestive) heart failure active 2022-07-27 ProblemAct [facility] HTN (hypertension) active 2022-07-26 ProblemAct [facility] Rheumatoid arthritis active ProblemAct [facility] Immunizations Vaccine Date Source Lot Number Status Influenza, Trivalent (FLUARI X, AFLURIA, FLULAVAL, FLUZONE) Preservative [facility] Influenza, Trivalent (FLUARI X, AFLURIA, FLULAVAL, FLUZONE) Preservative Free IM 06/30/2024 [facility] completed Influenza, Trivalent (FLUARI X, AFLURIA, FLULAVAL, FLUZONE) Preservative Free IM 06/30/2024 [facility] completed Encounters Encounter Type Encounter Reason Primary Diagnosis Location Date Ambulatory Chronic systolic (congestive) heart failure Chronic systolic (congestive) heart failure [facility] 5 Ambulatory [facility] 5 Ambulatory Presence of cardiac and vascular implant and graft, unspecified Presence of cardiac and vascular implant and graft, unspecified [facility] 5 Emergency Difficulty Breathing Difficulty Breathing [facility] 5 Ambulatory [facility] 5 Emergency fatigue Other fatigue THoNE [facility] [address] [facility] 5 Emergency Chest pain, unspecified Chest pain, unspecified [facility] [address] [facility] 5 Ambulatory Heart failure, unspecified Heart failure, unspecified [facility] 5 Ambulatory [facility] 5 [facility]ulatory [facility] 5 [facility] 5 [facility] 5 [facility] 5 [facility] 5 Ambulatory Chronic systolic (congestive) heart failure Chronic systolic (congestive) heart failure [facility] 5 Ambulatory [facility] 5 Ambulatory [facility] 5 Ambulatory [facility] 5 Inpatient Atherosclerotic hear t disease of [place] coronary artery without angina pectoris Atherosclerotic heart disease of [place] coronary artery without angina pectoris [facility] 4 Ambulatory Chronic systolic (congestive) heart failure Chronic systolic (congestive) heart failure [facility] 4 Ambulatory Acute on chronic systolic (congestive) heart failure Acute on chronic systolic (congestive) heart failure [facility] 4 Emergency Sprain of unspecifie d site of right knee, initial encounter Sprain of unspecified site of right knee, initial encounter [facility] 4 Ambulatory Chronic systolic (congestive) heart failure Chronic systolic (congestive) heart failure [facility] 4 Ambulatory [facility] 4 Ambulatory [facility] 4 [facility]ulatory [facility] 4 Inpatient Acute on chronic systolic (congestive) heart failure Acute on chronic systolic (congestive) heart failure [facility] 4 Ambulatory Acute on chronic systolic (congestive) heart failure Acute on chronic systolic (congestive) heart failure [facility] 4 Emergency Right upper quadrant pain Right upper quadrant pain [facility] 4 Emergency Right upper quadrant pain Right upper quadrant pain [facility] 4 Emergency Bitten by dog, initial encounter Bitten by dog, initial encounter [facility] 4 Ambulatory Chronic systolic (congestive) heart failure Chronic systolic (congestive) heart failure [facility] 4 Emergency Chest pain, unspecified Chest pain, unspecified [facility] 4 Ambulatory [facility] 4 Ambulatory Heart failure, unspecified Heart failure, unspecified [facility] 4 Ambulatory Heart failure, unspecified Heart failure, unspecified [facility] 4 Emergency [facility] 3 Emergency [facility] 3 Ambulatory Acute on chronic systolic (congestive) heart failure Acute on chronic systolic (congestive) heart failure [facility] 3 Emergency Heart failure, unspecified Heart failure, unspecified [facility] 3 Ambulatory Abnormal electrocardiogram (ECG) (EKG) [facility] 3 Ambulatory Abnormal electrocardiogram (ECG) (EKG) [facility] 3 Ambulatory [facility] 3 Ambulatory Acute on chronic systolic (congestive) heart failure [facility] 3 Ambulatory Acute on chronic systolic (congestive) heart failure [facility] 3 Ambulatory Heart failure, unspecified [facility] 3 Ambulatory Heart failure, unspecified [facility] 3 Ambulatory [facility] 3 Inpatient Heart failure, unspecified [facility] 3 Ambulatory Acute on chronic systolic (congestive) heart failure [facility] 3 Inpatient Heart failure, unspecified Heart failure, unspecified [facility] 3 Emergency Leg Swelling [facility] 3 Emergency Unspecified bact erial pneumonia [facility] 3 Ambulatory [facility] 3 Ambulatory Unspecified lump in the left breast, lower outer quadrant [facility] 3 Ambulatory Unspecified lump in the left breast, lower outer quadrant [facility] 3 Ambulatory Unspecified lump in the left breast, lower outer quadrant [facility] 3 Ambulatory Cutaneous absces s, unspecified [facility] 3 Emergency Rash [facility] 2 Emergency Influenza due to other identified influenza virus with other respiratory manifestations [facility] 2 Ambulatory TCM (Transitiona l Care Management) [facility] 2 Ambulatory Chest pain, unspecified [facility] 2 Ambulatory [facility] 2 Emergency Chest pain, unspecified [facility] 2 Emergency Viral infection, unspecified [facility] 2 Emergency Chest Pain [facility] 2 Emergency Essential (prima ry) hypertension [facility] 2 Care Team Organization Name Specialty Phone Email Start Date End Da te [facility]25 [facility] 01/20/2025 [facility] 11/17/2024 [facility] NO PHYSICIAN Primary Care 11/11/2024 [facility] 11/11/2024 [facility] 10/27/2024 [facility] Prompt Panel 10/19/2024 12/08/2024 [facility] 09/21/2024 [facility] 07/29/2024 07/31/20 24 [facility] 07/10/2024 [facility] Primary Care 06/30/2024 [facility] 05/21/2024 [facility] 03/12/2024 03/23/2025 [facility] 03/12/2024 [facility] 01/07/2024 [facility] 07/12/2023 [facility] 06/01/2023 024 [facility] Primary Care Clementine Perez Primary Care 01/01/2023 05/14/2024 [facility] 08/24/2022 [facility] CLEMENTINE PEREZ Primary Care 08/08/2022 [facility] 07/11/2022 [facility] PCP,No Primary Care 05/24/2022 [facility] SERGIO Primary Care 02/14/2022 08/24/20 [facility] NO PCP Primary Care 02/14/2022 05/24/2022 [facility] NO PCP Primary Care 12/23/2021 [facility] CLEMENTINE PEREZ Primary Care 12/23/2021 07/26/2022
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
--- NOTE | 2025-05-01 01:45 | ECG_ITS ---
Test Reason : SOB Blood Pressure : */* mmHG Vent. Rate : 102 BPM Atrial Rate : 102 BPM P-R Int : 158 ms QRS Dur : 96 ms QT Int : 366 ms P-R-T Axes : 64 58 97 degrees QTcB Int : 477 ms Sinus tachycardia Otherwise normal ECG No previous ECGs available Referred By: Alea Nielsen Electronically Signed By: MARITZA REHMAN MD
[2025-05-01 02:09] LABS: Troponin-I High Sensitivity 7.0 ng/L (<3.5-17.0)
[2025-05-01 02:14] LABS: B Type Natriuretic Peptide 640 pg/mL (<100)
[2025-05-01 02:47] VITALS: BP 131/73; PULSE 100; RESP 17; TEMP 36.9; O2SAT 99
[2025-05-01 03:17] LABS: Troponin-I High Sensitivity 7.1 ng/L (<3.5-17.0)
--- NOTE | 2025-05-01 03:43 | PC.NURSE ---
reviewed discharge instructions with pt, pt verbalized understanding, no sign of distress. notified CHUYITA aranda.
[2025-05-01 03:44] VITALS: BP 131/73; PULSE 100; RESP 17; TEMP 36.9; O2SAT 99
== END 2025-05-01 03:45 | disposition home or self-care (01) ==
PROVIDERS: Physician Assistant Medical; Emergency Provider Emergency Medicine
DX: S80.01XA Contusion of right knee, initial encounter (principal); R06.02 Shortness of breath; R00.0 Tachycardia, unspecified; R10.2 Pelvic and perineal pain; M25.561 Pain in right knee; V43.62XA Car passenger injured in collision with other type car in traffic accident, initial encounter; Y93.9 Activity, unspecified; Y92.410 Unspecified street and highway as the place of occurrence of the external cause; Y99.8 Other external cause status; Z79.899 Other long term (current) drug therapy
CPT/HCPCS: 36415; 71045; 73560; 80053; 83880; 84484; 84702; 85025; 93005; 99283; 99284

== ENCOUNTER → 2025-05-01 01:45 | Outpatient (BNV) | payer MEDICARE, MEDICAID, SELFPAY | PROVIDERS: Emergency Provider Emergency Medicine; Visit Provider Internal Medicine Cardiovascular Disease | DX: R00.0 Tachycardia, unspecified (principal) | CPT/HCPCS: 93010 ==

== ENCOUNTER → 2025-05-01 23:18 | Outpatient (BNV) | payer MEDICARE, MEDICAID, SELFPAY | PROVIDERS: Visit Provider Radiology Diagnostic Radiology | DX: R06.02 Shortness of breath (principal); M25.561 Pain in right knee; V49.50XA Passenger injured in collision with unspecified motor vehicles in traffic accident, initial encounter | CPT/HCPCS: 71045; 73560 ==